=== PATIENT | female | born 1950 | race Caucasian/White ===

== ENCOUNTER → 2017-11-22 | Outpatient (CLI) | payer MEDICARE ==
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
== END ==
LOC: MRI 09:17
PROVIDERS: ATTEND Student in an Organized Health Care Education/Training Program
DX: M54.5 Low back pain (principal); M54.16 Radiculopathy, lumbar region; M54.12 Radiculopathy, cervical region; M47.892 Other spondylosis, cervical region
CPT/HCPCS: 72141; 72148

== ENCOUNTER → 2018-03-31 | Day surgery (SDC) | payer MEDICARE, OTHER ==
[~2018-03-31] MED LIST: ALENDRONATE SOD70 MG; ALEVE220 M1; CEFTRIAXONE SOD 1 GM VIAL ONE; CLARITIN-D 241 EACH PO; FLONASE; IOPAMIDOL 610MG/1ML 300 MG/ML VIAL IV ONE; LIDOCAINE HCL 1% LOCAL INJ 20 ML VIAL ONE; LIDOCAINE JELLY 2% 10ML URO-JET ONE; LISINOPRIL10 MG PO; LYRICA50 MG; NORCO 10-325 T1 EACH; PANTOPRAZOLE SO40 MG PO; PROMETHAZINE HC25 M1 PO; SERTRALINE HCL100 MG PO; VITAMIN D1000 UNI1 PO
--- OUTSIDE RECORDS SUMMARY | 2018-03-31 08:47 | XMS REPORT | Clinical Summary ---
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 Disp. Refills Start End Date Status Date ergocalciferol (VITAMIN TK 1 C PO 1 TIME A WK 1 11/05/19 Active D2) 50,000 unit capsule 17 HYDROcodone-acetaminophen TK 1 T PO QID PRN 0 10/27/19 Active (NORCO) 10-325 mg per 17 tablet sertraline (ZOLOFT) 100 TK 1 T PO QD 5 08/17/19 Active MG tablet 17 pregabalin (LYRICA) 75 MG Take 75 mg by mouth 2 Active capsule (two) times a day. traZODone (DESYREL) 50 MG TK 1 T PO QD HS PRN 5 11/14/19 Active tablet 17 fluticasone (FLONASE) 50 SHAKE LQ AND U 1 SPR IEN 1 12/03/19 Active mcg/actuation nasal spray QD 17 metoprolol succinate XL Take 50 mg by mouth Active (TOPROL-XL) 50 mg 24 hr daily. tablet ascorbic acid, vitamin C, Take 1,000 mg by mouth Active (vitamin C) 1000 MG daily. tablet atenolol (TENORMIN) 50 MG TK 1 T PO QD 2 10/14/19 04/08/20 Discontin tablet 17 17 ued cyanocobalamin 1,000 0 10/18/19 04/08/20 Discontin mcg/mL injection 17 17 ued lidocaine-prilocaine USE UP TO 3 GRAMS (1 99 09/01/19 05/04/20 Discontin (EMLA) 2.5-2.5 % cream PUMP=1.5 GRAMS) TO PAIN 17 17 ued SITE 3-4 TIMES DAILY venlafaxine (EFFEXOR) 3 09/10/19 06/22/19 Discontin 37.5 MG tablet 17 18 ued oxybutynin (DITROPAN) 5 TK 1 T PO BID 5 11/24/19 04/08/20 Discontin MG tablet 17 17 ued pantoprazole (PROTONIX) Take 1 tablet (40 mg 60 tablet 11 12/09/19 09/01/19 Discontin 40 MG EC total) by mouth 2 (two) 17 18 ued tabletIndications: times a day before meals. Gastroesophageal reflux disease with esophagitis methocarbamol (ROBAXIN) Take 750 mg by mouth 2 06/22/19 Discontin 750 MG tablet (two) times a day. 18 ued LYRICA 100 mg capsule TK 1 C PO TID 1 02/19/20 04/08/20 Discontin 17 17 ued sucralfate (CARAFATE) 1 TK 1 T PO BID OES 5 02/12/20 06/29/19 Discontin gram tablet 17 18 ued simethicone (MYLICON) 80 Chew 1 tablet (80 mg 120 tablet 0 07/28/19 07/28/19 Discontin MG chewable tablet total) 4 (four) times a 18 18 ued day for 30 days. simethicone (MYLICON) 80 Chew 1 tablet (80 mg 120 tablet 0 07/28/19 07/28/19 Discontin MG chewable tablet total) 4 (four) times a 18 18 ued day for 30 days. simethicone (MYLICON) 80 Chew 1 tablet (80 mg 120 tablet 0 07/28/19 08/27/19 MG chewable tablet total) 4 (four) times a 18 18 day for 30 days. acetaminophen (TYLENOL Take 2 tablets (1,000 mg 30 tablet 0 07/28/19 08/02/19 EXTRA STRENGTH) 500 MG total) by mouth every 8 18 18 tablet (eight) hours for 5 days. naproxen sodium (ANAPROX) Take 1 tablet (275 mg 6 tablet 0 07/28/19 07/31/19 275 MG tablet total) by mouth 2 (two) 18 18 times a day with meals for 3 days. Active Problems Problem Noted Date Achalasia 07/26/2017 Encounters Date Type Specialty Care Team Description 03/14/2018 [facility] Radiology NyBlake MD Screening breast Encounter examination 03/14/2018 Ancillary Access System, Provider Not In, Screening breast Orders MD examination 03/09/2018 Transcribe Access Blake Alejandra MD Screening breast Orders examination (Primary Dx) 11/09/2017 Office Visit Gastroenterology Mele Siddiqui MD Achalasia (Primary Dx) 09/29/2017 Office Visit Gastroenterology Mele Siddiqui MD Diarrhea, unspecified type (Primary Dx) 08/31/2017 Office Visit Cardiothoracic Surgery Basim Vera MD Surgery follow-up examination (Primary Dx); Achalasia 07/26/2017 [facility] Cardiovascular Basim Vera MD Achalasia - Encounter 07/27/2017 07/26/2017 Anesthesia Cardiothoracic Surgery Jeff Badillo MD Event 07/26/2017 Procedure Pass Cardiothoracic Surgery 07/26/2017 Surgery Cardiothoracic Surgery Basim Vera MD ROBOTIC ASSISTED LAPAROSCOPIC HELLER MYOTOMY W/ LEILANI FUNDOPLICATION 07/09/2017 Office Visit Gastroenterology Mele Siddiqui MD Achjaviersia (Primary Dx) 06/29/2017 Office Visit Cardiothoracic Surgery Basim Vera MD Achjaviersikristyn (Primary Dx); Pre-op testing 06/24/2017 Procedure Pass Cardiothoracic Surgery 06/22/2017 [facility] Cardiothoracic Surgery Basim Vera MD Encounter 06/22/2017 Anesthesia Cardiothoracic Surgery Jabari Clark Event 06/22/2017 Procedure Pass Cardiothoracic Surgery 06/22/2017 Surgery Cardiothoracic Surgery Basim Vera MD EGD WITH ENDOFLIP 06/21/2017 Telephone Cardiothoracic Surgery Fiordaliza Barger, BODY SHOP MECHANIC 06/21/2017 Orders Only Cardiothoracic Surgery Fiordaliza Barger, BODY SHOP MECHANIC 06/02/2017 Telephone Cardiothoracic Surgery Fiordaliza Barger, BODY SHOP MECHANIC 05/04/2017 Lab Lab Basim Vera MD Pre-operative laboratory examination (Primary Dx); Dyskinesia of esophagus 05/04/2017 Office Visit Cardiothoracic Surgery Basim Vera MD Pre-operative laboratory examination (Primary Dx); Esophageal dysmotility 05/04/2017 Orders Only Procedural Cardiology Alex Melara 05/03/2017 [facility] Radiology Basim Vera MD Achalasia Encounter 04/21/2017 Transcribe Cardiothoracic Surgery Basim Vera MD Achalasia (Primary Dx) Orders 04/08/2017 Office Visit Gastroenterology Mele Siddiqui MD Achalasia (Primary Dx) after 03/30/2017 Family History Relation Name Status Comments Father Mother Social History Tobacco Use Types Packs/Day Years Used Date Never Smoker Smokeless Tobacco: Never Used Alcohol Use Drinks/Week oz/Week Comments Yes socially Sex Assigned at Date Recorded Not on file Last Filed Vital Signs Vital Sign Reading Time Taken Blood Pressure 123/80 11/09/2017 10:33 AM CDT Pulse 74 11/09/2017 10:33 AM CDT Temperature 36.5 C (97.7 F) 11/09/2017 10:33 AM CDT Respiratory Rate 18 08/31/2017 1:44 PM CDT Oxygen Saturation 95% 08/31/2017 1:44 PM CDT Inhaled Oxygen - - Concentration Weight 87.5 kg (193 lb) 11/09/2017 10:33 AM CDT Height 162.6 cm (5' 4") 11/09/2017 10:33 AM CDT Body Mass Index 33.13 11/09/2017 10:33 AM CDT Plan of Treatment Health Maintenance Due Date Last Done Comments CERVICAL CANCER SCREENING 1973 COLON CANCER SCREENING 2002 SHINGRIX VACCINE (#1) 2002 ZOSTER VACCINE 2012 PNEUMOCOCCAL 2017 POLYSACCHARIDE VACCINE AGE 65 AND OVER PNEUMOCOCCAL-13 2017 INFLUENZA VACCINE 12/22/2017 BREAST CANCER SCREENING 03/14/2020 03/14/2018 Implants Implanted Type Area Mumps Developer Device Expiration Model / Identifier Date Serial / Lot Catheter Endoflip 8cm Measurement - Surgical N/A: N/A CROSPON EF 325N / [id number] Implants; / Implanted: 06/22/2017 (Quantity not Expanders; on file) Extenders; Surgical Wires Catheter Endoflip 8cm Measurement - Surgical N/A: N/A CROSPON EF 325N / [id number] Implants; / Implanted: 07/26/2017 (Quantity not Expanders; on file) Extenders; Surgical Wires Glynn Perph Vasclr Ptfe 1.2x10cm Vascular N/A: N/A BARD PERIPHERAL 04/20/2022 [id number] / 1.65mm - [id number] Graft VASCULAR / Implanted: 07/26/2017 (Quantity not [id number] on file) Procedures Procedure Name Priority Date/Time Associated Diagnosis Comments MAMMO BREAST SCREEN Routine 03/14/2018 Screening breast Results for this TOMOSYNTHESIS BILATERAL 10:55 AM CDT examination procedure are in the results section. GASTROINTESTINAL PANEL Routine 10/04/2017 12:00 AM CDT ZZESTIMATED GFR Routine 07/27/2017 Results for this 6:53 AM INFECTIOUS DISEASE PHYSICIAN procedure are in the results section. BASIC METABOLIC PANEL Routine 07/27/2017 Results for this 6:53 AM INFECTIOUS DISEASE PHYSICIAN procedure are in the results section. CBC HEMOGRAM Routine 07/27/2017 Results for this 6:12 AM INFECTIOUS DISEASE PHYSICIAN procedure are in the results section. POC GLUCOSE Routine 07/26/2017 Results for this 8:54 PM INFECTIOUS DISEASE PHYSICIAN procedure are in the results section. IONIZED CALCIUM, ARTERIAL STAT 07/26/2017 Results for this 4:30 PM INFECTIOUS DISEASE PHYSICIAN procedure are in the results section. GLUCOSE LEVEL, SYRINGE STAT 07/26/2017 Results for this 4:30 PM INFECTIOUS DISEASE PHYSICIAN procedure are in the results section. POTASSIUM, SYRINGE STAT 07/26/2017 Results for this 4:30 PM INFECTIOUS DISEASE PHYSICIAN procedure are in the results section. SODIUM LEVEL, SYRINGE STAT 07/26/2017 Results for this 4:30 PM INFECTIOUS DISEASE PHYSICIAN procedure are in the results section. HEMOGLOBIN, SYRINGE STAT 07/26/2017 Results for this 4:30 PM INFECTIOUS DISEASE PHYSICIAN procedure are in the results section. ARTERIAL BLOOD GAS, STAT 07/26/2017 Results for this CORRECTED 4:30 PM INFECTIOUS DISEASE PHYSICIAN procedure are in the results section. GLUCOSE LEVEL, SYRINGE STAT 07/26/2017 Results for this 2:51 PM INFECTIOUS DISEASE PHYSICIAN procedure are in the results section. HEMOGLOBIN, SYRINGE STAT 07/26/2017 Results for this 2:51 PM INFECTIOUS DISEASE PHYSICIAN procedure are in the results section. IONIZED CALCIUM, ARTERIAL STAT 07/26/2017 Results for this 2:51 PM INFECTIOUS DISEASE PHYSICIAN procedure are in the results section. POTASSIUM, SYRINGE STAT 07/26/2017 Results for this 2:51 PM INFECTIOUS DISEASE PHYSICIAN procedure are in the results section. SODIUM LEVEL, SYRINGE STAT 07/26/2017 Results for this 2:51 PM INFECTIOUS DISEASE PHYSICIAN procedure are in the results section. ARTERIAL BLOOD GAS, STAT 07/26/2017 Results for this CORRECTED 2:51 PM INFECTIOUS DISEASE PHYSICIAN procedure are in the results section. ARTERIAL LINE Routine 07/26/2017 2:23 PM INFECTIOUS DISEASE PHYSICIAN Procedure Note - Raiza Maldonado MD - 07/26/2017 2:23 PM INFECTIOUS DISEASE PHYSICIAN Arterial line Performed by: RAIZA MALDONADO Authorized by: ARIZA MALDONADO SD AN ELECTIVE Routine 07/26/2017 ENDOTRACHEAL AIRWAY 2:20 PM INFECTIOUS DISEASE PHYSICIAN Procedure Note - Raiza Maldonado MD - 07/26/2017 2:20 PM INFECTIOUS DISEASE PHYSICIAN Airway Date/Time: 07/26/2017 2:17 AM Performed by: RAIZA MALDONADO Authorized by: RAIZA MALDONADO Location: OR Urgency: Elective Difficult Airway: No Anesthesio logist: RAIZA MALDONADO Resident/C RNA/AA: SUSSY GARCIA Performed by: resident/C RNA/AA Preoxygena lydia with 100% O2: Yes C-spine Precaution s Maintained Throughout : Yes Mask Ventilatio n: Easy mask Final Airway Type: Endotrache al airway Final Endotrache al Airway: ETT Technique Used: Direct laryngosco py Devices/Me thods Used in Placement: Intubatin g stylet Insertion Site: Oral Blade Type: Julian Laryngosco pe Blade/Vide olaryngosc ope Blade Size: 3 ETT Size (mm): 7.0 Measured from: Lips ETT to Lips (cm): 20 Placement Verified by: CO2 detection, direct visualizat ion and equal breath sounds Laryngosco pic view: Grade I - full view of glottis Rapid Sequence Induction (RSI): Yes Modified RSI: No Number of Attempts at Approach: 1 ECG 12-LEAD STAT 07/26/2017 Results for this 1:40 PM INFECTIOUS DISEASE PHYSICIAN procedure are in the results section. SODIUM LEVEL, SYRINGE STAT 07/26/2017 Results for this 11:55 AM INFECTIOUS DISEASE PHYSICIAN procedure are in the results section. POTASSIUM, SYRINGE STAT 07/26/2017 Results for this 11:55 AM INFECTIOUS DISEASE PHYSICIAN procedure are in the results section. HEMOGLOBIN, SYRINGE STAT 07/26/2017 Results for this 11:55 AM INFECTIOUS DISEASE PHYSICIAN procedure are in the results section. GLUCOSE LEVEL, SYRINGE STAT 07/26/2017 Results for this 11:55 AM INFECTIOUS DISEASE PHYSICIAN procedure are in the results section. PREPARE RBC STAT 07/26/2017 Results for this 11:20 AM INFECTIOUS DISEASE PHYSICIAN procedure are in the results section. TYPE AND SCREEN STAT 07/26/2017 Results for this 11:20 AM INFECTIOUS DISEASE PHYSICIAN procedure are in the results section. SURGICAL PATHOLOGY Routine 07/26/2017 Results for this REQUEST 8:56 AM INFECTIOUS DISEASE PHYSICIAN procedure are in the results section. SD AN ELECTIVE Routine 06/22/2017 ENDOTRACHEAL AIRWAY 8:16 AM INFECTIOUS DISEASE PHYSICIAN Procedure Note - Alfred Perry MD - 06/22/2017 7:41 AM INFECTIOUS DISEASE PHYSICIAN Airway Date/Time: 06/22/2017 7:38 AM Performed by: SANTO JIMENEZ Authorized by: ALFRED PERRY Location: OR Urgency: Elective Difficult Airway: No Anesthesio logist: ALFRED PERRY Resident/C RNA/AA: SANTO JIMENEZ Performed by: resident/C RNA/AA Preoxygena lydia with 100% O2: Yes C-spine Precaution s Maintained Throughout : Yes Mask Ventilatio n: Easy mask Final Airway Type: Endotrache al airway Final Endotrache al Airway: ETT Technique Used: Direct laryngosco py Devices/Me thods Used in Placement: Intubatin g stylet Insertion Site: Oral Blade Type: Julian Laryngosco pe Blade/Vide olaryngosc ope Blade Size: 2 ETT Size (mm): 7.0 Measured from: Lips ETT to Lips (cm): 22 Placement Verified by: CO2 detection, direct visualizat ion and equal breath sounds Laryngosco pic view: Grade IIa - partial view of glottis Rapid Sequence Induction (RSI): Yes Modified RSI: No Number of Attempts at Approach: 1 Atraumati c Lips teeth tongue eyes remain in preoperati ve status OR FL < 1 HOUR Routine 06/22/2017 Results for this 8:00 AM INFECTIOUS DISEASE PHYSICIAN procedure are in the results section. PARTIAL THROMBOPLASTIN STAT 06/22/2017 Results for this TIME (PTT) 6:43 AM INFECTIOUS DISEASE PHYSICIAN procedure are in the results section. PROTHROMBIN TIME WITH INR STAT 06/22/2017 Results for this 6:43 AM INFECTIOUS DISEASE PHYSICIAN procedure are in the results section. HC COMPLETE BLD COUNT STAT 06/22/2017 Results for this W/AUTO DIFF 6:43 AM INFECTIOUS DISEASE PHYSICIAN procedure are in the results section. TYPE AND SCREEN STAT 06/22/2017 Results for this 5:55 AM INFECTIOUS DISEASE PHYSICIAN procedure are in the results section. ZZESTIMATED GFR STAT 06/22/2017 Results for this 5:46 AM INFECTIOUS DISEASE PHYSICIAN procedure are in the results section. BASIC METABOLIC PANEL STAT 06/22/2017 Results for this 5:46 AM INFECTIOUS DISEASE PHYSICIAN procedure are in the results section. ECG 12-LEAD Routine 05/04/2017 Results for this 12:35 PM INFECTIOUS DISEASE PHYSICIAN procedure are in the results section. ZZESTIMATED GFR Routine 05/04/2017 Results for this 12:20 PM INFECTIOUS DISEASE PHYSICIAN procedure are in the results section. PROTHROMBIN TIME WITH INR Routine 05/04/2017 Pre-operative laboratory Results for this 12:20 PM INFECTIOUS DISEASE PHYSICIAN examination procedure are in the Dyskinesia of esophagus results section. PARTIAL THROMBOPLASTIN Routine 05/04/2017 Pre-operative laboratory Results for this TIME (PTT) 12:20 PM INFECTIOUS DISEASE PHYSICIAN examination procedure are in the Dyskinesia of esophagus results section. HC COMPLETE BLD COUNT Routine 05/04/2017 Pre-operative laboratory Results for this W/AUTO DIFF 12:20 PM INFECTIOUS DISEASE PHYSICIAN examination procedure are in the Dyskinesia of esophagus results section. COMPREHENSIVE METABOLIC Routine 05/04/2017 Pre-operative laboratory Results for this PANEL 12:20 PM INFECTIOUS DISEASE PHYSICIAN examination procedure are in the Dyskinesia of esophagus results section. FL ESOPHAGRAM COMPLETE Routine 05/03/2017 Achalasia Results for this 10:56 AM INFECTIOUS DISEASE PHYSICIAN procedure are in the results section. after 03/30/2017 Results * Mammo Breast Screen Tomosynthesis Bilateral (03/14/2018 10:55 AM) Narrative Performed At PROCEDURE: MAMMO BREAST SCREEN TOMOSYNTHESIS BILATERAL [facility] Computer aided detection was utilized for the interpretation of the digital mammography with tomosynthesis. INDICATION:Routine screening. COMPARISON: This exam is interpreted without the benefit of prior mammograms for comparison. DENSITY: There are scattered areas of fibroglandular density. FINDINGS: Faint vascular arterial wall calcifications are noted. There is no suspicious mass, microcalcification, or architectural distortion identified. IMPRESSION:No mammographic evidence of malignancy. RECOMMENDATION: Comparison with physical exam and annual screening mammography. BI-RADS 2:BENIGN This facility is accredited by the [employer] for Mammography. A negative x-ray report should not delay biopsy if a dominant or clinically suspicious mass is present.Not all cancers are identified by x-ray. [id number] Performing Organization Address City/State/Zipcode Phone Number [facility] [address] [place] [address] * Gastrointestinal panel (10/04/2017) Specimen Stool Narrative Performed At * Estimated GFR (07/27/2017 6:53 AM) Only the most recent of 3 results within the time period is included. GFR Non Af Amer >90 mL/min/1.[address] [facility] DEPARTMENT OF PATHOLOGY AND GENOMIC MEDICINE GFR Af Amer >90 mL/min/1.[address] [facility] DEPARTMENT OF Comment: PATHOLOGY AND Chronic kidney disease: <60 [facility] MEDICINE mL/min/1.73m2 Kidney failure: <15 mL/min/1.73m2 The estimated GFR is calculated from the IDMS-traceable Modification of Diet in Renal Disease Equation. The accuracy of the calculation is poor when the creatinine is normal. Calculated values >90 mL/min/1.73m2 are not reported. This equation has not been validated in children (<18 years), women, the elderly (>70 years), or ethnic groups other than Caucasians and Americans. Specimen Plasma specimen Performing Organization Address City/[facility] [place] [address] PATHOLOGY [facility] * Basic metabolic panel (07/27/2017 6:53 AM) Only the most recent of 2 results within the time period is included. Sodium 145 135 - 148 mEq/L [facility] DEPARTMENT OF PATHOLOGY AND GENOMIC MEDICINE Potassium 3.7 3.5 - 5.0 mEq/L [facility] DEPARTMENT OF PATHOLOGY AND GENOMIC MEDICINE Chloride 107 98 - 112 mEq/L [facility] DEPARTMENT OF PATHOLOGY AND GENOMIC MEDICINE CO2 27 24 - 31 mEq/L [facility] DEPARTMENT OF PATHOLOGY AND GENOMIC MEDICINE Anion gap 11 7 - 15 mEq/L [facility] DEPARTMENT OF Comment: PATHOLOGY AND Starting from August [facility] , anion gap calculation no longer incorporates potassium. Please note the change. BUN 13 8 - 23 mg/dL [facility] DEPARTMENT OF PATHOLOGY AND GENOMIC MEDICINE Creatinine 0.5 0.5 - 0.9 mg/dL [facility] DEPARTMENT OF PATHOLOGY AND GENOMIC MEDICINE Glucose 99 65 - 99 mg/dL [facility] DEPARTMENT OF PATHOLOGY AND GENOMIC MEDICINE Calcium 9.6 8.8 - 10.2 mg/dL [facility] DEPARTMENT OF PATHOLOGY AND GENOMIC MEDICINE Specimen Plasma specimen Performing Organization Address City/[facility] Phone Number [address] [address] PATHOLOGY [facility] [employer] [facility] * CBC hemogram (07/27/2017 6:12 AM) WBC 4.18 (L) 4.50 - 11.00 k/uL [facility] DEPARTMENT OF PATHOLOGY AND GENOMIC MEDICINE RBC 4.32 4.20 - 5.50 m/uL [facility] DEPARTMENT OF PATHOLOGY AND GENOMIC MEDICINE HGB 12.1 12.0 - 16.0 g/dL [facility] DEPARTMENT OF PATHOLOGY AND GENOMIC MEDICINE HCT 36.7 (L) 37.0 - 47.0 % [facility] DEPARTMENT OF PATHOLOGY AND GENOMIC MEDICINE MCV 85.0 82.0 - 100.[address] [facility] DEPARTMENT OF PATHOLOGY AND GENOMIC MEDICINE MCH 28.0 27.0 - 34.[address] [facility] DEPARTMENT OF PATHOLOGY AND GENOMIC MEDICINE MCHC 33.0 31.0 - 37.0 g/dL [facility] DEPARTMENT OF PATHOLOGY AND GENOMIC MEDICINE RDW - SD 46.2 37.0 - 55.[address] [facility] DEPARTMENT OF PATHOLOGY AND GENOMIC MEDICINE MPV 9.7 8.8 - 13.[address] [facility] DEPARTMENT OF PATHOLOGY AND GENOMIC MEDICINE Platelet count 142 (L) 150 - 400 k/uL [facility] DEPARTMENT OF PATHOLOGY AND GENOMIC MEDICINE Nucleated RBC 0.00 /[address] [facility] DEPARTMENT OF PATHOLOGY AND GENOMIC MEDICINE Performing Organization Address City/[facility]ode Phone Number [facility] [place] [address] PATHOLOGY AND GENOMIC MEDICINE * POC glucose (07/26/2017 8:54 PM) POC glucose 112 (H) 65 - 99 mg/dL [facility] DEPARTMENT OF Comment: PATHOLOGY AND REPLACED BY [facility] Notified RN GENOMIC MEDICINE Meter ID: [id number] Mental Health Counselor: Daniel Sellers Performing Organization Address City/[facility] [place] [address] PATHOLOGY AND GENOMIC MEDICINE * Sodium level, syringe (07/26/2017 4:30 PM) Only the most recent of 3 results within the time period is included. Sodium, syringe 139 135 - 148 mEq/L [facility] DEPARTMENT OF PATHOLOGY AND GENOMIC MEDICINE Specimen Blood Performing Organization Address City/[facility] [place] [address] PATHOLOGY AND GENOMIC MEDICINE * Potassium, syringe (07/26/2017 4:30 PM) Only the most recent of 3 results within the time period is included. Potassium, syringe 3.5 3.5 - 5.0 mEq/L [facility] DEPARTMENT OF PATHOLOGY AND GENOMIC MEDICINE Specimen Blood Performing Organization Address City/State/[place] [address] PATHOLOGY AND GENOMIC MEDICINE * Ionized calcium, arterial (07/26/2017 4:30 PM) Only the most recent of 2 results within the time period is included. Ionized calcium, arterial 1.04 (L) 1.11 - 1.32 mmol/L [facility] DEPARTMENT OF PATHOLOGY AND GENOMIC MEDICINE Specimen Blood Performing Organization Address City/[facility] [place] [address] PATHOLOGY AND GENOMIC MEDICINE * Hemoglobin, syringe (07/26/2017 4:30 PM) Only the most recent of 3 results within the time period is included. Hemoglobin, syringe 11.5 (L) 12.0 - 16.0 g/dL [facility] DEPARTMENT OF PATHOLOGY AND GENOMIC MEDICINE Specimen Blood Performing Organization Address City/[facility] [place] [address] PATHOLOGY AND GENOMIC MEDICINE * Glucose level, syringe (07/26/2017 4:30 PM) Only the most recent of 3 results within the time period is included. Glucose, syringe 118 (H) 65 - 99 mg/dL [facility] DEPARTMENT OF PATHOLOGY AND GENOMIC MEDICINE Specimen Blood Performing Organization Address [facility] [place] [address] PATHOLOGY AND GENOMIC MEDICINE * Arterial blood gas, corrected (07/26/2017 4:30 PM) Only the most recent of 2 results within the time period is included. pH, arterial 7.41 7.35 - 7.[address] [facility] DEPARTMENT OF PATHOLOGY AND GENOMIC MEDICINE pCO2, arterial 36 35 - [address] [facility] DEPARTMENT OF PATHOLOGY AND GENOMIC MEDICINE pO2, arterial 229 (H) 80 - [address] [facility] DEPARTMENT OF PATHOLOGY AND GENOMIC MEDICINE Temperature, Celsius 37.[address] [facility] DEPARTMENT OF PATHOLOGY AND GENOMIC MEDICINE O2 saturation, arterial 99 95 - 100 % [facility] DEPARTMENT OF PATHOLOGY AND GENOMIC MEDICINE pH, arterial corrected 7.[address] [facility] DEPARTMENT OF PATHOLOGY AND GENOMIC MEDICINE pCO2, arterial corrected [address] [facility] DEPARTMENT OF PATHOLOGY AND GENOMIC MEDICINE pO2, arterial corrected [address] [facility] DEPARTMENT OF PATHOLOGY AND GENOMIC MEDICINE Base excess, arterial -1 -2 - 2 mEq/L [facility] DEPARTMENT OF PATHOLOGY AND GENOMIC MEDICINE Specimen Blood Performing Organization Address [facility]/Zipcode Phone Number [address] [address] PATHOLOGY AND GENOMIC MEDICINE * ECG 12 lead (07/26/2017 1:40 PM) Only the most recent of 2 results within the time period is included. Ventricular rate 77 [facility] Atrial rate 77 [facility] SD interval 184 [facility] QRSD interval 100 [facility] QT interval 388 [facility] QTC interval [address] [facility] MUSE P axis 1 24 HM MUSE QRS axis 1 -[address] [facility] MUSE T wave axis -[address] [facility] MUSE EKG impression Normal sinus rhythm-Left axis 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 DEPARTMENT OF PATHOLOGY AND GENOMIC MEDICINE Unit number [id number] [facility] DEPARTMENT OF PATHOLOGY AND GENOMIC MEDICINE Product code [id number] [facility] DEPARTMENT OF PATHOLOGY AND GENOMIC MEDICINE Dispense status Returned to BB not transfused [facility] DEPARTMENT OF PATHOLOGY AND GENOMIC MEDICINE Blood expiration date [id number] [facility] DEPARTMENT OF PATHOLOGY AND GENOMIC MEDICINE Blood type code [address] [facility] DEPARTMENT OF PATHOLOGY AND GENOMIC MEDICINE Blood type A NEGATIVE [facility] DEPARTMENT OF PATHOLOGY AND GENOMIC MEDICINE Performing Organization Address City/[facility] Cent[facility]ode Phone Number [facility] DEPARTMENT [address] [address] PATHOLOGY AND GENOMIC MEDICINE * Type and screen (07/26/2017 11:20 AM) Only the most recent of 2 results within the time period is included. ABO grouping A [facility] DEPARTMENT OF PATHOLOGY AND GENOMIC MEDICINE Rh type NEG [facility] DEPARTMENT OF PATHOLOGY AND GENOMIC MEDICINE Antibody screen (gel) NEG [facility] DEPARTMENT OF PATHOLOGY AND GENOMIC MEDICINE Specimen Blood Performing Organization Address City/State/Zipcode Phone Number [facility] [place] [address] PATHOLOGY AND GENOMIC MEDICINE * Surgical pathology request (07/26/2017 8:56 AM) [facility] DEPARTMENT OF PATHOLOGY AND GENOMIC MEDICINE Surgical pathology report See link below for PDF Lab [facility] DEPARTMENT OF Report PATHOLOGY AND GENOMIC MEDICINE Result status This is Final Report to [facility] DEPARTMENT OF [id number] PATHOLOGY AND GENOMIC MEDICINE Performing Organization Address City/[facility] [place] [address] PATHOLOGY AND GENOMIC MEDICINE * OR [place] < 1 Hour (06/22/2017 8:00 AM) Narrative Performed At IMPRESSION: C-arm fluoroscopy under one hour was provided in the OR for the [facility] referring physician. A radiologist was not present during the procedure. Refer to the Operative report issued by the performing provider for procedure details. LOCATION: [place] [facility]7 PROCEDURE: EGD START TIME: 744 FINISH TIME: 0800 FLUORO TIME: :05 DOSE (mGy): 1.7 TECH(S): AB Procedure Note Hm Interface, Radiology Results Incoming - 06/22/2017 10:33 AM INFECTIOUS DISEASE PHYSICIAN IMPRESSION: C-arm fluoroscopy under one hour was provided in the OR for the referring physician. A radiologist was not present during the procedure. Refer to the Operative report issued by the performing provider for procedure details. LOCATION: [facility] PROCEDURE: EGD START TIME: 744 FINISH TIME: 0800 FLUORO TIME: :05 DOSE (mGy): 1.7 TECH(S): AB Performing Organization Address [facility] [place] [address] * Partial thromboplastin time, activated (06/22/2017 6:43 AM) Only the most recent of 2 results within the time period is included. PTT 27.5 23.0 - 36.[address] [facility] DEPARTMENT OF Comment: PATHOLOGY AND PTT therapeutic range for GENOMIC MEDICINE unfractionated heparin is 61.0-112.0 seconds which corresponds to Anti-Xa 0.3-0.7 U/ml. Specimen Blood Performing Organization Address City/[facility]/[place] [address] PATHOLOGY AND GENOMIC MEDICINE * Prothrombin time with INR (06/22/2017 6:43 AM) Only the most recent of 2 results within the time period is included. Prothrombin time 13.0 12.0 - 15.[address] [facility] DEPARTMENT OF PATHOLOGY AND GENOMIC MEDICINE INR 1.[address] [facility] DEPARTMENT OF Comment: PATHOLOGY AND The International Normalized GENOMIC MEDICINE Ratio (INR) is a therapeutic monitoring tool for patients who are stable on oral anticoagulant therapy. An INR of 2.0-3.0 is suggested for deep vein thrombosis/pulmonary embolism. Specimen Blood Performing Organization Address City/State/Zipcode Phone Number [facility] DEPARTMENT OF [address] [place] [address] PATHOLOGY AND GENOMIC MEDICINE * CBC with platelet and differential (06/22/2017 6:43 AM) Only the most recent of 2 results within the time period is included. WBC 5.18 4.50 - 11.00 k/uL [facility] DEPARTMENT OF PATHOLOGY AND GENOMIC MEDICINE RBC 4.41 4.20 - 5.50 m/uL [facility] DEPARTMENT OF PATHOLOGY AND GENOMIC MEDICINE HGB 12.2 12.0 - 16.0 g/dL [facility] DEPARTMENT OF PATHOLOGY AND GENOMIC MEDICINE HCT 36.8 (L) 37.0 - 47.0 % [facility] DEPARTMENT OF PATHOLOGY AND GENOMIC MEDICINE MCV 83.4 82.0 - 100.[address] [facility] DEPARTMENT OF PATHOLOGY AND GENOMIC MEDICINE MCH 27.7 27.0 - 34.[address] [facility] DEPARTMENT OF PATHOLOGY AND GENOMIC MEDICINE MCHC 33.2 31.0 - 37.0 g/dL [facility] DEPARTMENT OF PATHOLOGY AND GENOMIC MEDICINE RDW - SD 45.0 37.0 - 55.[address] [facility] DEPARTMENT OF PATHOLOGY AND GENOMIC MEDICINE MPV 9.8 8.8 - 13.[address] [facility] DEPARTMENT OF PATHOLOGY AND GENOMIC MEDICINE Platelet count 144 (L) 150 - 400 k/uL [facility] DEPARTMENT OF PATHOLOGY AND GENOMIC MEDICINE Nucleated RBC 0.00 /[address] [facility] DEPARTMENT OF PATHOLOGY AND GENOMIC MEDICINE Neutrophils 39.9 39.0 - 69.0 % [facility] DEPARTMENT OF PATHOLOGY AND GENOMIC MEDICINE Lymphocytes 48.3 (H) 25.0 - 45.0 % [facility] DEPARTMENT OF PATHOLOGY AND GENOMIC MEDICINE Monocytes 7.7 0.0 - 10.0 % [facility] DEPARTMENT OF PATHOLOGY AND GENOMIC MEDICINE Eosinophils 3.3 0.0 - 5.0 % [facility] DEPARTMENT OF PATHOLOGY AND GENOMIC MEDICINE Basophils 0.6 0.0 - 1.0 % [facility] DEPARTMENT OF PATHOLOGY AND GENOMIC MEDICINE Immature granulocytes 0.2Comment: "Immature 0.0 - 1.0 % [facility] DEPARTMENT OF granulocytes" (promyelocytes, PATHOLOGY AND myelocytes, metamyelocytes) [facility] Specimen Blood Performing Organization Address City/State/Zipcode Phone Number [facility] DEPARTMENT OF [address] [place] [address] PATHOLOGY AND GENOMIC MEDICINE * Comprehensive metabolic panel (05/04/2017 12:20 PM) Sodium 142 135 - 148 mEq/L [facility] DEPARTMENT OF PATHOLOGY AND GENOMIC MEDICINE Potassium 4.0 3.5 - 5.0 mEq/L [facility] DEPARTMENT OF PATHOLOGY AND GENOMIC MEDICINE Chloride 102 98 - 112 mEq/L [facility] DEPARTMENT OF PATHOLOGY AND GENOMIC MEDICINE CO2 27 24 - 31 mEq/L [facility] DEPARTMENT OF PATHOLOGY AND GENOMIC MEDICINE Anion gap 13 7 - 15 mEq/L [facility] DEPARTMENT OF Comment: PATHOLOGY AND Starting from August GENOMIC MEDICINE , anion gap calculation no longer incorporates potassium. Please note the change. BUN 14 8 - 23 mg/dL [facility] DEPARTMENT OF PATHOLOGY AND GENOMIC MEDICINE Creatinine 0.5 0.5 - 0.9 mg/dL [facility] DEPARTMENT OF PATHOLOGY AND GENOMIC MEDICINE Glucose 91 65 - 99 mg/dL [facility] DEPARTMENT OF PATHOLOGY AND GENOMIC MEDICINE Calcium 9.7 8.8 - 10.2 mg/dL [facility] DEPARTMENT OF PATHOLOGY AND GENOMIC MEDICINE Protein 7.2 6.3 - 8.3 g/dL [facility] DEPARTMENT OF Comment: PATHOLOGY AND [place] GENOMIC MEDICINE 4.6-7.0 g/dL 1 week 4.4-7.6 g/dL 7 months-1year 5.1-7.3 g/dL 1-2 years5.6-7 .5 g/dL >3 years6.0-8 .0 g/dL 18-150 6.3-8.3 g/dL Albumin 3.9 3.5 - 5.0 g/dL [facility] DEPARTMENT OF PATHOLOGY AND GENOMIC MEDICINE A/G ratio 1.2 0.7 - 3.[address] [facility] DEPARTMENT OF PATHOLOGY AND GENOMIC MEDICINE Alkaline phosphatase 88 35 - 104 U/L [facility] DEPARTMENT OF PATHOLOGY AND GENOMIC MEDICINE AST 23 10 - 35 U/L [facility] DEPARTMENT OF PATHOLOGY AND GENOMIC MEDICINE ALT 17 5 - 50 U/L [facility] DEPARTMENT OF PATHOLOGY AND GENOMIC MEDICINE Total bilirubin 0.5 0.0 - 1.2 mg/dL [facility] DEPARTMENT OF PATHOLOGY AND GENOMIC MEDICINE Specimen Plasma specimen Performing Organization Address [facility] Phone Number [facility] DEPARTMENT OF [address] [place] [address] PATHOLOGY AND GENOMIC MEDICINE * [place] Esophagram Complete (05/03/2017 10:56 AM) Narrative Performed At EXAMINATION[facility] [facility]:K22.0 Achalasia of cardia, achalasia COMPARISON:None. Fluoroscopy time: 0.6 minutes FINDINGS: The patient swallowed air producing granules and barium without difficulty. The esophagus demonstrates normal motility. No focal mucosal abnormality is identified. There is no evidence of stricture. The esophagogastric junction is unremarkable. There is minimum intermittent gastroesophageal reflux. IMPRESSION: No ductal contrast esophagram evidence of achalasia or stenosis. Minimum intermittent gastroesophageal reflux.. [id number] Procedure Note Interface, Radiology Results Incoming - 05/03/2017 11:15 AM INFECTIOUS DISEASE PHYSICIAN EXAMINATION: [place] ESOPHAGRAM COMPLETE CLINICAL HISTORY: K22.0 Achalasia of cardia, achalasia COMPARISON: None. Fluoroscopy time: 0.6 minutes FINDINGS: The patient swallowed air producing granules and barium without difficulty. The esophagus demonstrates normal motility. No focal mucosal abnormality is identified. There is no evidence of stricture. The esophagogastric junction is unremarkable. There is minimum intermittent gastroesophageal reflux. IMPRESSION: No ductal contrast esophagram evidence of achalasia or stenosis. Minimum intermittent gastroesophageal reflux.. [id number] Performing Organization Address [facility] Centercode Phone Number [facility] [address] [place] [address] after 03/30/2017 Insurance Payer Benefit Subscriber ID Type Phone Address Plan / Group [employer] MEDICARE [employer] DUAL xxxxxxxxx HMO COMPLETE [facility]
--- OUTSIDE RECORDS SUMMARY | 2018-03-31 08:48 | XMS REPORT | Summary of Care ---
Author Author [facility] [place] Organization [facility] [place] Address Unknown Phone Unavailable Encounter HQ Renard_laila(FIN) [id number] Date(s): 10/08/16 - 10/08/16 [facility] [place] [address] [place] [address] 7 [phone] Discharge Disposition: Home or Self Care Attending Physician: Thu Grier MD Vital Signs No data available for this section Problem List Condition Effective Dates Status Health Status Informant Anemia(Confirmed) Resolved Arthritis(Confirmed) Active Bronchiolitis, Resolved acute(Confirmed) Cardiomegaly(Confirm Resolved ed) Colon Resolved polyp(Confirmed) Diaphragmatic Active hernia(Confirmed) Gastric Resolved ulcer(Confirmed) GERD Active (gastroesophageal reflux disease)(Confirmed) HTN - Resolved Hypertension(Confirm ed) Neuropathy(Confirmed Active ) Allergies, Adverse Reactions, Alerts Substance Reaction Severity Status Demerol HCl Active Medications No data available for this section Results No data available for this section Immunizations No data available for this section Procedures Procedure Date Related Diagnosis Body Site Appendectomy Bilateral replacement of knee joints Bilateral tubal ligation Carpal tunnel release Cholecystectomy Colonoscopy Esophagogastroduodenoscopy Hysterectomy Social History Social History Type Response Alcohol Current, Type Wine. Previous treatment: None. Smoking Status Never smoker; Exposure to Tobacco Smoke None; Cigarette Smoking Last 365 Days No; Reg Smoking Cessation Counseling No Assessment and Plan No data available for this section
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
--- OUTSIDE RECORDS SUMMARY | 2018-03-31 08:48 | XMS REPORT | Continuity of Care Document ---
Author Author [facility] Interface Address Unknown Phone Unavailable Problems Problem Status Onset Date Classification Date Reported Comments Source M54.12 - "RADICULOPATHY, CERVICAL REGION Active 10/05/2016 [facility] [place] [facility] 789.04; ABDOMINAL CRAMPING IN LEFT LOWER Active 04/02/2014 [facility] Anemia Resolved Problem 10/11/2016 [facility] [place] Arthritis Active Problem 10/11/2016 [facility] [place] Bronchiolitis, acute Resolved Problem 10/11/2016 [facility] [place] Cardiomegaly Resolved Problem 10/11/2016 [facility] [place] Colon polyp Resolved Problem 10/11/2016 [facility] [place] Diaphragmatic hernia Active Problem 10/11/2016 [facility] [place] Gastric ulcer Resolved Problem 10/11/2016 [facility] [place] GERD (<span ID="[id number]">Confirmed</span>) Active Problem 10/11/2016 [facility] [place] HTN - Hypertension Resolved Problem 10/11/2016 [facility] [place] Neuropathy Active Problem 10/11/2016 [facility] [place] ABDMNAL PAIN LT LWR QUAD Active [facility] Medications Medication Details Route Status Patient Instructions Ordering Provider Order Date Source Allergies, Adverse Reactions, Alerts Substance Category Reaction Severity Reaction type Status Date Reported Comments Source Demerol HCl Assertion Drug allergy Active [facility] [place] [facility] Immunizations Immunization Date Given Site Status Last Updated Comments Source Results Order Name Results Value Reference Range Date Interpretation Comments Source Spine cervical wo contrast MRI Spine cervical wo contrast MRI EXAM: MRI CERVICAL SPINE WITHOUT CONTRAST DATE: 10/08/2016 12:37 PM CDT CLINICAL HISTORY: 66 year old female with c/o cervical pain and headaches. Post fall x 3 months ago. Patient stated she was bending forward and fell hit first. TECHNIQUE: Multiplanar, multisequence MRI cervical spine without IV contrast COMPARISON: Unavailable FINDINGS: VISUALIZED INTRACRANIAL CONTENTS: Unremarkable. CRANIOCERVICAL JUNCTION: Cerebellar tonsils are low-lying protruding 3 mm through foramen magnum. CORD: No definite cord signal abnormality. No definite dural based lesion. VERTEBRAE: The vertebrae are normal in height and alignment. The curvature is hyperlordotic. No focal suspicious bone marrow signal abnormality. PARASPINAL SOFT TISSUES: No edema or masses. There is a 7 mm right thyroid nodule requiring no imaging follow-up unless indicated clinically. DISC LEVELS, SPINAL CANAL, NEURAL FORAMINA: Craniocervical junction: No stenosis C1-C2: No subluxation, ligamentous pannus formation, or stenosis C2-C3: Intervertebral disc height and signal are maintained. Posterior elements are normal.There is no stenosis. C3-C4: The discs is dehydrated without height loss. There is left facet hypertrophy. Central canal measures 12 mm. Neural foramina are patent. C4-C5: Disc is dehydrated without height loss. There is right greater than left facet hypertrophy. Central canal measures 12 mm. There is moderate narrowing of the right neural foramen. C5-C6: Disc is dehydrated without height loss. There is left greater than right facet hypertrophy. Central canal measures 12 mm. Neural foramina are patent. C6-C7: Loss intervertebral disc height with circumferential disc osteophyte complex. Facets are mildly enlarged. Central canal measures 10 mm. Neural foramina are patent. C7-T1: Intervertebral disc height and signal are maintained. Posterior elements are normal. There is no stenosis. IMPRESSION: 1. Mild cervical disc degeneration without central canal stenosis 2. Moderate right C4-C5 neural foramen narrowing 3. Slightly low-lying cerebellar tonsils without mass effect on the brainstem 10/08/2016 - - Read by: Mando Rivera MD Dictated Date/time: 10/08/16 13:33 Electronically Signed by: Mando Rivera MD 10/08/16 15:19 FINAL REPORT [facility] IMMUNOLOGY Hep C Ab Negative *NA* (04/04/14 3:19 PM) 04/04/2014 [facility] Hep B Core Ab Negative *NA* (04/04/14 3:19 PM) Negative 04/04/2014 [facility] Hep B Core IgM Negative *NA* (04/04/14 3:19 PM) Negative 04/04/2014 [facility] Hep Bs Ab null <=7.4 mIU/mL 04/04/2014 1Interpretive Data: <=7.4 mIU/mL--------Negative for Anti-HBs. Not immune to HBV infection. 7.5-12.4 mIU/mL--Borderline for Anti-HBs and immune status should be further assessed by considering other factors such as clinical status follow-up testing, associated risk factors, and the use of additional diagnostic information. >12.4 mIU/mL-------Positive for Anti-HBs. Immune to HBV infection [facility] IMMUNOLOGY Hep Bs Ag Negative *NA* (04/04/14 3:19 PM) Negative 04/04/2014 [facility] URINE AND STOOL UA Color Ltyellow 04/04/2014 [facility] URINE AND STOOL UA Urobilinogen <=1.0 mg/dL 0.1 - 1.0 04/04/2014 [facility] URINE AND STOOL UA Turbidity Clear (04/04/14 3:19 PM) Clear 04/04/2014 [facility] URINE AND STOOL UA Bacteria Occasional /HPF None Seen /HPF 04/04/2014 [facility] URINE AND STOOL UA WBC 7 /HPF 0 - 5 04/04/2014 [facility] URINE AND STOOL UA RBC 3 /HPF 0 - 2 04/04/2014 [facility] URINE AND STOOL UA Leuk Est Small *ABN* (04/04/14 3:19 PM) Negative 04/04/2014 [facility] URINE AND STOOL UA Sq Epi Occasional /LPF Few /LPF 04/04/2014 [facility] URINE AND STOOL UA Blood Moderate *ABN* (04/04/14 3:19 PM) Negative 04/04/2014 [facility] URINE AND STOOL UA Bili Negative *NA* (04/04/14 3:19 PM) Negative 04/04/2014 [facility] URINE AND STOOL UA Nitrite Negative (04/04/14 3:19 PM) Negative 04/04/2014 [facility] URINE AND STOOL UA Ketones Negative mg/dL Negative mg/dL 04/04/2014 [facility] URINE AND STOOL UA pH 6.0 5.0 - 8.0 04/04/2014 [facility] URINE AND STOOL UA Spec Grav 1.006 <=1.030 04/04/2014 [facility] URINE AND STOOL UA Glucose Negative mg/dL Negative mg/dL 04/04/2014 [facility] URINE AND STOOL UA Protein Negative mg/dL Negative mg/dL 04/04/2014 [facility] Pelvis w Pelvis Transvaginal US Pelvis w Pelvis Transvaginal US PELVIC ULTRASOUND: CLINICAL HX: Left lower quadrant pain COMPARISON: CT abdomen pelvis 08/09/2013 TECHNIQUE: Multiple static transabdominal images of the pelvis are submitted for review. FINDINGS: The uterus is surgically absent. Neither ovary is optimally visualized on the transabdominal study. The bladder is grossly unremarkable in appearance. TRANSVAGINAL ULTRASOUND: TECHNIQUE: Multiple static transvaginal images of the pelvis are submitted for review. FINDINGS: Neither ovary is visualized on the transvaginal study. Evaluation is compromised due to extensive bowel gas in the pelvis. No free fluid is present in the cul-de-sac. IMPRESSION: Uterus is surgical absent. Neither ovary is visualized on the transabdominal and transvaginal study. SL:13 04/04/2014 - - Read by: Matt Carranza MD Dictated Date/time: 04/05/14 07:45 Electronically Signed by: Matt Carranza MD 04/05/14 07:51 FINAL REPORT [facility] Vital Signs Vital Sign Value Date Comments Source Encounters Location Location Details Encounter Type Encounter Number Reason For Visit Attending Provider ADM Date DC Date Status Source [facility] [place] [place] Outpatient [id number] Daniel Wade 04/04/2014 04/05/2014 [facility] [place] [facility] [id number] Thu Grier 10/08/2016 10/09/2016 [facility] [place] [facility] Procedures Procedure Code Date Perfomer Comments Source Appendectomy 16304047 [facility] [place] [facility] Bilateral replacement of knee joints 503586099 [facility] [place] [facility] Bilateral tubal ligation [id number] [facility] Carpal tunnel release 41996029 [facility] [place] [facility] Cholecystectomy [id number] [facility] [place] [facility] Colonoscopy [id number] [facility] Esophagogastroduodenoscopy [id number] [facility] [place] [facility] Hysterectomy [id number] [facility] [place] [facility]
--- OUTSIDE RECORDS SUMMARY | 2018-03-31 08:48 | XMS REPORT | Summary of Care ---
Author Organization Unknown Address Unknown Phone Unavailable Encounter [facility](ROSAMARIA) [id number] Date(s): 04/04/14 - 04/04/14 [facility] [address] [place] [address] Discharge Disposition: Home Physician Attending: Daniel Wade MD Physician_Referring: Daniel Wade MD Reason for Visit 789.04; ABDOMINAL CRAMPING IN LEFT LOWER QUADRANT V73.9 Problem List Condition Effective Dates Status Health Status Informant Anemia(Confirmed) Resolved Arthritis(Confirmed) Active Bronchiolitis, Resolved acute(Confirmed) Cardiomegaly(Confirm Resolved ed) Colon Resolved polyp(Confirmed) Diaphragmatic Active hernia(Confirmed) Gastric Resolved ulcer(Confirmed) GERD Active (gastroesophageal reflux disease)(Confirmed) HTN - Resolved Hypertension(Confirm ed) Neuropathy(Confirmed Active ) Allergies, Adverse Reactions, Alerts Substance Reaction Severity Status Demerol HCl Active Medications No data available for this section Results URINE AND STOOL Most recent to 1 oldest [Reference Range]: UA Turbidity [Clear] Clear (04/04/14 3:19 PM) UA Color Ltyellow *NA* (04/04/14 3:19 PM) UA pH [5.0-8.0] 6.0 (04/04/14 3:19 PM) UA Spec Grav 1.006 [<=1.030] (04/04/14 3:19 PM) UA Glucose [Negative Negative mg/dL mg/dL] *NA* (04/04/14 3:19 PM) UA Blood [Negative] Moderate *ABN* (04/04/14 3:19 PM) UA Ketones [Negative Negative mg/dL mg/dL] *NA* (04/04/14 3:19 PM) UA Protein [Negative Negative mg/dL mg/dL] (04/04/14 3:19 PM) UA Urobilinogen <=1.0 mg/dL [0.1-1.0 mg/dL] *NA* (04/04/14 3:19 PM) UA Bili [Negative] Negative *NA* (04/04/14 3:19 PM) UA Leuk Est Small [Negative] *ABN* (04/04/14 3:19 PM) UA Nitrite Negative [Negative] (04/04/14 3:19 PM) UA WBC [0-5 /HPF] 7 /HPF *HI* (04/04/14 3:19 PM) UA RBC [0-2 /HPF] 3 /HPF *HI* (04/04/14 3:19 PM) UA Bacteria [None Occasional /HPF Seen /HPF] *NA* (04/04/14 3:19 PM) UA Sq Epi [Few /LPF] Occasional /LPF *NA* (04/04/14 3:19 PM) IMMUNOLOGY Most recent to 1 oldest [Reference Range]: Hep Bs Ag [Negative] Negative *NA* (04/04/14 3:19 PM) Hep B Core IgM Negative [Negative] *NA* (04/04/14 3:19 PM) Hep Bs Ab [<=7.4 <3.1 mIU/mL 1 mIU/mL] (04/04/14 3:19 PM) Hep B Core Ab Negative [Negative] *NA* (04/04/14 3:19 PM) Hep C Ab Negative *NA* (04/04/14 3:19 PM) 1Interpretive Data: <=7.4 mIU/mL--------Negative for Anti-HBs. Not immune to HBV infection. 7.5-12.4 mIU/mL--Borderline for Anti-HBs and immune status should be further assessed by considering other factors such as clinical status follow-up testing, associated risk factors, and the use of additional diagnostic information. >12.4 mIU/mL-------Positive for Anti-HBs. Immune to HBV infection Medications Administered During Your Visit No data available for this section Immunizations No data available for this section Social History Social History Type Response Alcohol Use: Current, Type: Wine, Previous treatment: None Smoking Status Never smoker, Exposure to Tobacco Smoke None, Cigarette Smoking Last 365 Days No, Reg Smoking Cessation Counseling No
[2018-03-31 09:58] LABS: BASOPHILS % 0.7 % (0.0-1.0); EOSINOPHILS # (AUTO) 0.2 (0.0-0.4); EOSINOPHILS % 2.7 % (0.0-6.0); HEMATOCRIT 38.4 % (34.2-44.1); HEMOGLOBIN 12.5 g/dL (12.0-16.0); LYMPHOCYTES # (AUTO) 2.5 (1.0-3.2); LYMPHOCYTES % 45.1 % (18.0-39.1); MEAN CORPUSCULAR HEMOGLOBIN 27.5 pg (28-32); MEAN CORPUSCULAR HGB CONC 32.6 g/dL (31-35); MEAN CORPUSCULAR VOLUME 84.6 fL (81-99); MONOCYTES # (AUTO) 0.4 (0.2-0.8); MONOCYTES % 7.6 % (4.4-11.3); NEUTROPHILS # (AUTO) 2.4 (2.1-6.9); NEUTROPHILS % 43.5 % (38.7-80.0); PLATELET COUNT 163 x10e3/uL (140-360); RED BLOOD COUNT 4.54 x10e6/uL (3.6-5.1); RED CELL DISTRIBUTION WIDTH 14.5 % (11.7-14.4)
--- NOTE | 2018-03-31 10:53 | Diagnostic Imaging Report ---
PROCEDURE: Frontal and lateral views of the chest. COMPARISON: None. INDICATIONS: PREOPERATIVE CHEST XRAY FOR BLADDER SURGERY FINDINGS: Lines/tubes: None. Lungs: Moderate lung volumes. Patchy bibasilar opacities. No evidence of lobar consolidation. Pleura: There is no pleural effusion or pneumothorax. Heart and mediastinum: Ectatic and tortuous thoracic aorta. Cardiac silhouette is unremarkable. Bones: No acute bony abnormality. Upper abdomen: Surgical clips project over the upper abdomen. IMPRESSION: No acute radiographic abnormality. Mild patchy bibasilar opacities, likely atelectasis. No evidence of lobar pneumonia. Tortuous and ectatic thoracic aorta. Dictated by: JACOB PACHECO M.D. on 03/31/2018 at 11:02 Electronically approved by: JACOB PACHECO M.D. on 03/31/2018 at 11:02
[2018-03-31 14:10] VITALS: BP 122/84
--- NOTE | 2018-04-07 11:12 | Operative Report ---
DATE OF PROCEDURE: March 31, 2018 PREOPERATIVE DIAGNOSIS: Bladder pain. POSTOPERATIVE DIAGNOSIS: Bladder pain. PROCEDURE PERFORMED: Cystoscopy. ANESTHESIA: Local. ESTIMATED BLOOD LOSS: Minimal. INDICATIONS: Ms. Dinora Lucero is a 67-year-old woman with a long history of bladder pain, which has been unresponsive to typical therapy. She now presents for management of this problem. PROCEDURE IN DETAIL: Patient was brought to the operating room and, after administration of 2% lidocaine intraurethrally, was prepped and draped in the usual fashion. Flexible cystoscopy was performed. The anterior and posterior regions were noted to be normal. Bladder was entered without difficulty. Upon entrance into the bladder, there was some squamous metaplasia noted at the trigone. There was a fairly normal capacity but significant increase in the hyperemia associated with filling of the bladder consistent with possible interstitial cystitis. Decompression of the bladder and repeat reinflation resorted in moderate increase to this bleeding. The bladder was then drained in its entirety, and the bladder was filled with 30 mL of lidocaine without epinephrine. The cystoscope was removed and the patient returned to a supine position. She was transferred to a bed and taken to the postanesthesia care unit in good condition. Of note, the needle and instrument counts were correct at the conclusion of the case. Job#: [id number]
== END | disposition home or self-care (01) ==
LOC: OR 08:45
PROVIDERS: ATTEND Urology
DX: R39.89 Other symptoms and signs involving the genitourinary system (principal); N39.46 Mixed incontinence; N32.89 Other specified disorders of bladder; Z68.30 Body mass index [BMI] 30.0-30.9, adult; I10 Essential (primary) hypertension
CPT/HCPCS: 36415; 52000; 71046; 85025; 93005; J0696; J2001

== ENCOUNTER → 2018-09-21 | Outpatient (CLI) | payer MEDICARE, OTHER ==
[~2018-09-21] MED LIST changes: -CEFTRIAXONE SOD 1 GM VIAL ONE; -IOPAMIDOL 610MG/1ML 300 MG/ML VIAL IV ONE; -LIDOCAINE HCL 1% LOCAL INJ 20 ML VIAL ONE; -LIDOCAINE JELLY 2% 10ML URO-JET ONE
--- NOTE | 2018-09-21 09:43 | Diagnostic Imaging Report ---
Exam: Bilateral feet, 3 views History: Rheumatoid arthritis Comparison: None. Findings: Left: No acute, displaced fracture or dislocation. Postsurgical changes related to fusion of the first metatarsal and the underlying medial cuneiform with intact orthopedic screws. Joint space narrowing and marginal osteophytosis throughout the midfoot. No definite erosions. Soft tissues unremarkable. Right: No acute, displaced fracture or dislocation. Joint spaces are well-maintained without erosions. Soft tissues unremarkable. 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 No acute osseous abnormalities of the right foot. Signed by: Dr. Lester Don M.D. on 09/21/2018 9:39 AM
--- NOTE | 2018-09-21 09:51 | Diagnostic Imaging Report ---
Exam: Bilateral hands, 3 views History: Rheumatoid arthritis Comparison: None. Findings: Left: No acute, displaced fracture or dislocation. Near complete joint space loss of the first carpometacarpal joint with subchondral sclerosis and marginal osteophytes. Deformity of the first proximal phalanx with subluxation of the interphalangeal joint. Marginal erosions along the distal aspect of the second, third, and fourth proximal phalanges. Scattered foci of joint space narrowing and subchondral sclerosis throughout the interphalangeal joints. Right: No acute, displaced fracture or dislocation. Mild joint space narrowing and marginal osteophytosis of the first carpometacarpal joint. Deformity of the proximal first phalanx with subluxation of the interphalangeal joint. Marginal erosions along the second, and third, and fourth proximal phalanges. Scattered foci of joint space narrowing and marginal osteophytosis throughout the interphalangeal joints. Impression: Erosive arthropathy affecting the proximal interphalangeal joints in a symmetric fashion in keeping with the provided diagnosis of rheumatoid arthritis. Asymmetric degenerative arthrosis of the first carpometacarpal joints. Signed by: Dr. Lester Don M.D. on 09/21/2018 9:48 AM
== END ==
LOC: RAD 08:27
PROVIDERS: ATTEND Student in an Organized Health Care Education/Training Program
DX: M06.9 Rheumatoid arthritis, unspecified (principal)

== ENCOUNTER → 2018-11-17 | Outpatient (CLI) | payer MEDICARE, OTHER ==
--- NOTE | 2018-11-17 14:48 | Diagnostic Imaging Report ---
Exam: AP pelvis and coned-down views of both hips; 5 views total dated 11/17/2018 History: Bilateral hip pain Comparison: None available Findings: There is mild bony demineralization. Bilateral joint space narrowing of the hip joints is present. No fracture or dislocation is seen. Partially visualized right intramedullary armin is present. Impression: Mild joint space narrowing. Signed by: Dr. Aryan Shelley DO on 11/17/2018 2:45 PM
== END ==
LOC: RAD 11:51
PROVIDERS: ATTEND Student in an Organized Health Care Education/Training Program
DX: M25.552 Pain in left hip (principal); M25.551 Pain in right hip
CPT/HCPCS: 73521

== ENCOUNTER 2019-06-26 10:57 | Inpatient (IN) | payer MEDICARE, OTHER ==
[~2019-06-26] VITALS: Ht 157.5 cm; Wt 92.1 kg
[~2019-06-26 10:57] MED LIST changes: -NORCO 10-325 T1 EACH; +NORCO 10-325 T1 EACH PO
[2019-06-26] MEDS ORDERED: IOPAMIDOL 300MG/ML 50ML INFUS..BTL IV ONE (11:37)
[2019-06-26] MEDS ORDERED: INDIGOTINDISULFONATE SODIUM 8 MG/ML AMP IJ ONE (11:38)
[2019-06-26] MEDS ORDERED: B&O 60MG R/S 60 MG SUPP PR ONE (11:38)
[2019-06-26] MEDS ORDERED: BUPIVACAINE 0.5%/EPI 30 ML SDV INJ ONE (11:38)
[2019-06-26] MEDS ORDERED: BACITRACIN 50,000 UNIT VIAL ONE (11:38)
[2019-06-26] MEDS ORDERED: SILVER SULFADIAZINE 50GM CREAM ONE (11:39)
[2019-06-26] MEDS ORDERED: PIPER-TAZ 3.375 GM 50 ML ONE (11:40)
[2019-06-26] MEDS ORDERED: CLINDAMYCIN 300MG 50 ML IV ONE (11:40)
[2019-06-26] MEDS ORDERED: GENTAMICIN 80MG/NS 100 ML 200 ML IV ONE (11:40)
[2019-06-26 12:01] LABS: BASOPHILS % 0.5 % (0.0-1.0); EOSINOPHILS % 0.7 % (0.0-6.0); HEMATOCRIT 36.5 % (34.2-44.1); HEMOGLOBIN 12.6 g/dL (12.0-16.0); LYMPHOCYTES # (AUTO) 1.9 (1.0-3.2); LYMPHOCYTES % 32.3 % (18.0-39.1); MEAN CORPUSCULAR HEMOGLOBIN 30.3 pg (28-32); MEAN CORPUSCULAR HGB CONC 34.5 g/dL (31-35); MEAN CORPUSCULAR VOLUME 87.7 fL (81-99); MONOCYTES # (AUTO) 0.6 (0.2-0.8); MONOCYTES % 9.5 % (4.4-11.3); NEUTROPHILS # (AUTO) 3.3 (2.1-6.9); NEUTROPHILS % 56.3 % (38.7-80.0); PLATELET COUNT 185 x10e3/uL (140-360); RED BLOOD COUNT 4.16 x10e6/uL (3.6-5.1); RED CELL DISTRIBUTION WIDTH 15.1 % (11.7-14.4)
[2019-06-26] MEDS ORDERED: AMITRIPTYLINE PO (12:17)
[2019-06-26] MEDS ORDERED: FOLIC ACID PO (12:17)
[2019-06-26] MEDS ORDERED: METHOTREXATE2.5 MG PO (12:17)
[2019-06-26] MEDS ORDERED: MONTELUKAST PO (12:17)
[2019-06-26] MEDS ORDERED: CYCLOBENZAPRINE10 MG PO (12:17)
[2019-06-26 12:21] LABS: ANION GAP 14.2 mmol/L (8-16); BLOOD UREA NITROGEN 24 mg/dL (7-26); BUN/CREATININE RATIO 42 (6-25); CALCIUM 9.8 mg/dL (8.4-10.2); CARBON DIOXIDE 27 mmol/L (22-29); CHLORIDE 104 mmol/L (98-107); CREATININE, SERUM 0.57 mg/dL (0.57-1.11); EST GLOMERULAR FILTRATION RATE > 60 ML/MIN (60-); GLUCOSE 94 mg/dL (74-118); POTASSIUM 4.2 mmol/L (3.5-5.1); SODIUM 141 mmol/L (136-145)
--- NOTE | 2019-06-26 12:43 | Diagnostic Imaging Report ---
EXAMINATION: CHEST 2 VIEWS INDICATION: Pre-operative COMPARISON: None FINDINGS: LINES/TUBES:None LUNGS:Increased AP diameter of the chest.. Mild left basilar subsegmental atelectasis. No focal consolidation or pulmonary edema. PLEURA:No pleural effusion or pneumothorax. MEDIASTINUM:The cardiomediastinal silhouette appears normal in size and shape. BONES/SOFT TISSUES:No acute osseous injury. ABDOMEN:No free air under the diaphragm. IMPRESSION: No focal pneumonia or pulmonary edema. Increased AP diameter of the chest, likely reflective of underlying COPD. Signed by: Yasmin Go MD on 06/26/2019 12:40 PM
[2019-06-26] MEDS ORDERED: DEXAMETHASONE SOD PHOS INJ 4 MG/ML VIAL ONE (14:10)
[2019-06-26] MEDS ORDERED: PROPOFOL IV EMULSION 10 MG/ML 20 ML VIAL ONE (14:10)
[2019-06-26] MEDS ORDERED: SEVOFLURANE INHAL SOLN 250 ML PEN BTL ONE (14:10)
[2019-06-26] MEDS ORDERED: LIDOCAINE HCL 2% LOCAL INJ 5 ML SDV VIAL INJ ONE (14:10)
[2019-06-26] MEDS ORDERED: ONDANSETRON HCL INJ 2MG/ML 2ML 2 MG/ML VIAL ONE (14:10)
[2019-06-26] MEDS ORDERED: ACETAMINOPHEN 1000 MG/100 ML 100 ML IV ONE (14:18)
[2019-06-26] MEDS ORDERED: MIDAZOLAM HCL 2 MG/2 ML VIAL ONE (14:30)
[2019-06-26] MEDS ORDERED: FENTANYL CITRATE/PF 100MCG/2 ML INJ ONE ×2 (14:30→15:02)
[2019-06-26] MEDS ORDERED: NALOXONE HCL INJ 0.4 MG/ML AMP IV PRN (15:00)
[2019-06-26] MEDS ORDERED: DIPHENHYDRAMINE HCL 25 MG CAP PO PRN (15:00)
[2019-06-26] MEDS ORDERED: ACETAMINOPHEN 1000 MG/100 ML IV PRN (15:00)
[2019-06-26] MEDS ORDERED: ONDANSETRON HCL INJ 2MG/ML 2ML 2 MG/ML VIAL IV PRN (15:00)
[2019-06-26] MEDS: MORPHINE SULFATE 1 MG/ML 30ML PCA IV PRN (15:20)
[2019-06-26] MEDS ORDERED: MORPHINE SULFATE 1 MG/ML 30ML PCA ONE (15:21)
[2019-06-26 16:30] VITALS: BP 168/77
--- NOTE | 2019-06-26 16:30 | NUR ---
Received patient lying in bed with eyes open. Respiration even and unlabored without SOB. 2 puncture sites on suprapubic area with 2x2 gauze and tagaderm clean, dry and intact. Indwelling lowry catheter intact, in placed with pink-colored urine to bag. CIGAR HEAD PIERCER pump in used. Call light in reach.
[2019-06-26] MEDS: DOCUSATE SODIUM 100 MG CAP PO SCH (17:51)
[2019-06-26] MEDS: D5.45%NS/KCL 20MEQ 1,000 ML IV SCH (17:51)
--- NOTE | 2019-06-26 19:49 | NUR ---
Report given to material handler 2nd shift. Respiration even and unlabored without SOB. Call light in reach. DRAFTER PLUMBING pump in used. Prince Catheter intact, in placed.
[2019-06-26 20:00] VITALS: BP 116/61
[2019-06-26 21:00] VITALS: BP 168/77
[2019-06-26] MEDS: PIPER-TAZ 3.375 GM 50 ML IV SCH (22:23)
[2019-06-27] VITALS (7 sets, daily range): BP systolic 97–153; BP diastolic 54–77
[2019-06-27] MEDS: D5.45%NS/KCL 20MEQ 1,000 ML IV SCH ×2 (01:52→12:22)
[2019-06-27] MEDS: PIPER-TAZ 3.375 GM 50 ML IV SCH ×3 (05:03→21:58)
[2019-06-27 06:26] LABS: ANION GAP 10.6 mmol/L (8-16); BLOOD UREA NITROGEN 9 mg/dL (7-26); BUN/CREATININE RATIO 17 (6-25); CALCIUM 8.7 mg/dL (8.4-10.2); CARBON DIOXIDE 28 mmol/L (22-29); CHLORIDE 106 mmol/L (98-107); CREATININE, SERUM 0.54 mg/dL (0.57-1.11); EST GLOMERULAR FILTRATION RATE > 60 ML/MIN (60-); GLUCOSE 115 mg/dL (74-118); POTASSIUM 3.6 mmol/L (3.5-5.1); SODIUM 141 mmol/L (136-145)
[2019-06-27 07:19] LABS: HEMATOCRIT 30.3 % (34.2-44.1); MEAN CORPUSCULAR VOLUME 91.3 fL (81-99); RED BLOOD COUNT 3.32 x10e6/uL (3.6-5.1)
[2019-06-27 07:20] LABS: MEAN CORPUSCULAR HEMOGLOBIN 30.1 pg (28-32); PLATELET COUNT 130 x10e3/uL (140-360)
[2019-06-27 07:21] LABS: EOSINOPHILS % 0.4 % (0.0-6.0); LYMPHOCYTES % 18.9 % (18.0-39.1); MONOCYTES % 10.1 % (4.4-11.3)
--- NOTE | 2019-06-27 08:00 | NUR ---
patient endorsed to next shift for continuity of care. bowling alley floors installer pumped replaced, 5.17 wasted and witnessed and another syringed replaced, 30mls.
[2019-06-27] MEDS: MORPHINE SULFATE 1 MG/ML 30ML PCA IV PRN (08:08)
[2019-06-27] MEDS ORDERED: ONDANSETRON HCL 4 MG ORAL DISINTEGRATING TAB PO PRN (09:00)
[2019-06-27 09:11] LABS: LYMPHOCYTES # (AUTO) 0.9 (1.0-3.2); MONOCYTES # (AUTO) 0.5 (0.2-0.8); NEUTROPHILS # (AUTO) 3.3 (2.1-6.9)
[2019-06-27] MEDS: DOCUSATE SODIUM 100 MG CAP PO SCH ×2 (09:24→17:08)
[2019-06-27] MEDS: PREGABALIN 50 MG CAP PO SCH ×3 (09:24→21:57)
--- NOTE | 2019-06-27 19:12 | NUR ---
Report given to oncoming nurse, walking rounds complete, pt stable at this this time.
[2019-06-27] MEDS ORDERED: SERTRALINE HCL 100 MG TAB PO SCH (21:00)
[2019-06-28] VITALS: BP 112/54
[2019-06-28] MEDS: D5.45%NS/KCL 20MEQ 1,000 ML IV SCH ×2 (00:51→11:47)
[2019-06-28 04:00] VITALS: BP 138/68
[2019-06-28] MEDS: ACETAMINOPHEN/CODEINE 300MG - 30MG TAB PO PRN ×2 (04:15→09:20)
[2019-06-28] MEDS: PIPER-TAZ 3.375 GM 50 ML IV SCH ×2 (06:06→13:36)
[2019-06-28 06:11] LABS: BASOPHILS % 0.2 % (0.0-1.0); EOSINOPHILS % 0.9 % (0.0-6.0); HEMATOCRIT 30.3 % (34.2-44.1); HEMOGLOBIN 9.9 g/dL (12.0-16.0); LYMPHOCYTES # (AUTO) 1.1 (1.0-3.2); LYMPHOCYTES % 24.8 % (18.0-39.1); MEAN CORPUSCULAR HGB CONC 32.7 g/dL (31-35); MEAN CORPUSCULAR VOLUME 91.8 fL (81-99); MONOCYTES # (AUTO) 0.4 (0.2-0.8); MONOCYTES % 9.8 % (4.4-11.3); NEUTROPHILS # (AUTO) 2.7 (2.1-6.9); NEUTROPHILS % 63.8 % (38.7-80.0); PLATELET COUNT 121 x10e3/uL (140-360); RED CELL DISTRIBUTION WIDTH 14.9 % (11.7-14.4)
[2019-06-28 06:32] LABS: BLOOD UREA NITROGEN 10 mg/dL (7-26); BUN/CREATININE RATIO 15 (6-25); CALCIUM 8.6 mg/dL (8.4-10.2); CARBON DIOXIDE 28 mmol/L (22-29); CHLORIDE 107 mmol/L (98-107); CREATININE, SERUM 0.67 mg/dL (0.57-1.11); EST GLOMERULAR FILTRATION RATE > 60 ML/MIN (60-); GLUCOSE 116 mg/dL (74-118); SODIUM 141 mmol/L (136-145)
[2019-06-28 07:25] VITALS: BP 138/71
--- NOTE | 2019-06-28 07:30 | NUR ---
Received patient this morning and alert and responsive, no resp distress, pains well managed and call light within reach, will monitor. Report received and rounds completed.
[2019-06-28 08:45] VITALS: BP 138/71
[2019-06-28] MEDS: DOCUSATE SODIUM 100 MG CAP PO SCH ×2 (09:04→16:15)
[2019-06-28] MEDS: PREGABALIN 50 MG CAP PO SCH ×2 (09:06→15:00)
[2019-06-28 11:30] VITALS: BP 125/61
--- NOTE | 2019-06-28 12:02 | NUR ---
Rounds by Dr. Vang and orders to d/c lowry, PVR x2 and if voiding <100cc, may discharge.
[2019-06-28] MEDS ORDERED: TYLENOL WITH C1 EACH PO (12:09)
[2019-06-28] MEDS ORDERED: LEVAQUIN500 MG PO (12:10)
--- NOTE | 2019-06-28 12:42 | NUR ---
TOOK WALKER TO PT AND OBTAINED SIGNATURES, ATTACHED ORDER, GREEN SHEET AND FACESHEET, WAITING ON MD SIGNATURE
--- NOTE | 2019-06-28 13:32 | NUR ---
Suresh louis d/c'd at this time, will monitor PVR
[2019-06-28 15:43] VITALS: BP 125/58
--- NOTE | 2019-06-28 15:59 | NUR ---
First PVR was 200cc and second PVR was 113cc. Reported to Dr. Vang and states to send patient home and schedule f/u appointment in 3-4 weeks.
--- NOTE | 2019-06-28 16:12 | NUR ---
Orders per Dr. Marsh to discharge patient. Voided x2 and PVR's reported and cleared by Dr. Vang to discharge. Pains well managed, provided with discharge summary, IV line removed and cath tip in place, dressing applied, prescriptions provided and contacts for f/u appointment.
--- NOTE | 2019-07-09 01:40 | Discharge Summary ---
DISCHARGE DIAGNOSIS: Cystocele status post repair. HISTORY OF PRESENT ILLNESS AND HOSPITAL COURSE: See hospital chart for full details. The patient is a lady, who presented with an elective outpatient procedure for cystocele repair with Dr. Vang, who did well postoperatively and as monitored in the hospital postoperatively for her abdominal pain, which improved each day. At the time of discharge, she was ambulating well, had minimal discomfort and was cleared by Dr. Vang and she will follow up in 1 to 2 weeks with me as well as Dr. Vang. Please see hospital chart for full details. MD ILYA Rene/RENETTA /[id number]
--- NOTE | 2019-08-07 05:34 | Operative Report ---
DATE OF PROCEDURE: 06/26/2019 SURGEON: Anton Vang MD PREOPERATIVE DIAGNOSES: 1. Stress type urinary incontinence. 2. Grade 3 cystocele. 3. Urinary tract infections. 4. Gross hematuria. POSTOPERATIVE DIAGNOSES: 1. Stress type urinary incontinence. 2. Grade 3 cystocele. 3. Urinary tract infections. 4. Gross hematuria. OPERATIONS PERFORMED: 1. Repair of large cystocele. 2. Utilization of graft and cystocele repair. 3. Pubovaginal sling utilizing homograft. 4. Cystourethroscopy with bilateral ureteral catheterization and retrograde ureteropyelography (separate procedure performed for the hematuria and urine tract infections). 5. Interpretation of retrograde ureteropyelography. 6. Supervision of fluoroscopy, no radiologist present. EQUIPMENT VALIDATION SPECIALIST: Nam Vang MD ANESTHESIA: General. COMPLICATIONS: None. CLINICAL SUMMARY: Dinora Lucero is a 69-year-old woman with the above preoperative diagnoses. She is brought for the above procedure. She is aware of the risks of bleeding, infection, injury to adjacent structures, need for additional procedures and elected to proceed. OPERATIVE PROCEDURE IN DETAIL: Informed consent was verified. Dinora Lucero was properly identified, taken to the operating room, placed on operating table in supine position. Anesthesia was uneventfully begun. The patient was then carefully gently repositioned in dorsal lithotomy position with all pressure points well padded. Her abdomen and genitalia were shaved, prepared, and draped in usual sterile fashion. Labial stay sutures were placed and the speculum was utilized. Marcaine with epinephrine was utilized to infiltrate submucosally along the midline of the anterior vaginal wall. A midline incision was made. Bilateral vaginal wall flaps were created. We then pierced the endopelvic fascia as laterally as possible to avoid injuring the neurovascular periurethral complexes. Once all this dissection was carried out, cystocele repair was performed. Heavy Vicryl suture was utilized in interrupted fashion to approximate the cut edges of the endopelvic fascia from the bladder neck to the cephalad was extended with vaginal dissection. This resulted in complete reduction of the patient's severe grade 3 cystocele. The graft of the fascia jelani was cut to shape. It was hydrated in antibiotic irrigant and a heavy PDS suture was placed in a helical fashion through each edge of this graft. The bladder was drained with a Prince catheter. The [employer] [facility] needle system was then utilized. We hung the posterior surface of the pubis and then pierced through the anterior abdominal wall. This we then dragged along with the needle, one pair of PDS suture strands. This was performed on the contralateral side. The graft was then secured to the dissection so that it does not migrate and support the cystocele. The distal portion of the graft was then approximated to the distal portion of the urethral dissection. This resulted in a pubovaginal sling. The [employer] [facility] lateral suture system was then utilized to take one strand of each PDS suture and tunnel it subcutaneously suprapubically to join its contralateral counterpart. We tied down the sutures to the level of the skin and allowed the knots to fall deep within the suprapubic fat pad. This is to ensure a non-lifting, non-constricting, and nonobstructing sling. Copious irrigation was performed of all incisions with the antibiotic irrigant. The stab wounds in the suprapubic region were approximated with 4-0 Monocryl suture in subcuticular fashion. The vaginal mucosa was trimmed and reapproximated with heavy Vicryl suture in running fashion. The Prince catheter was removed. Cystoscopy was performed. Panendoscopy revealed no suspicious mucosal lesions, no tumors, no stones, and no diverticula. An 8-Scottish catheter was used to cannulate each ureter and retrograde ureteral pyelogram was performed. Interpretation of retrograde ureteropyelography contrast was instilled in retrograde fashion bilaterally. There were no tumors, no stones, no diverticula. Unobstructed drainage was observed bilaterally fluoroscopically, J hooking was noted bilaterally. The bladder was drained. Cystoscope was withdrawn. Prince catheter was placed. Vaginal packing was placed. Sterile dressings were applied to the suprapubic area. The labial stay sutures were removed and the patient was uneventfully reversed from anesthesia and taken to recovery room in stable condition. There were no complications to the procedure. She tolerated the procedure well. We will proceed with routine postoperative care and of course ongoing urological followup. Anton Vang MD [facility]/MOD[facility] /[id number] cc: Taran Marsh MD
== END 2019-06-28 16:35 | disposition home or self-care (01) | DRG 748 ==
LOC: OR 10:57 → PACU V 15:15 → MED/SURG 16:37
PROVIDERS: ADMIT Internal Medicine; ATTEND Internal Medicine
PROC: 0T788ZZ Dilation of Bilateral Ureters, Via Natural or Artificial Opening Endoscopic (ICD-10-PCS; 2019-06-26)
PROC: 0JUC0JZ Supplement of Pelvic Region Subcutaneous Tissue and Fascia with Synthetic Substitute, Open Approach (ICD-10-PCS; principal; 2019-06-26 13:00)
PROC: 0TSD0ZZ Reposition Urethra, Open Approach (ICD-10-PCS; 2019-06-26 13:00)
DX: N81.12 Cystocele, lateral (principal); N39.0 Urinary tract infection, site not specified; I10 Essential (primary) hypertension; F41.9 Anxiety disorder, unspecified; E66.9 Obesity, unspecified; Z68.37 Body mass index [BMI] 37.0-37.9, adult; D64.9 Anemia, unspecified; N39.3 Stress incontinence (female) (male); R31.0 Gross hematuria
CPT/HCPCS: 36415; 71046; 74420; 80048; 85025; 93005; C1752; C1758; J1100; J1580; J2001; J2250; J2270; J2405; J2543; J3010

== ENCOUNTER 2019-06-29 02:39 | Emergency (ER) | payer MEDICARE ==
[~2019-06-29] VITALS: Ht 157.5 cm; Wt 92.1 kg
[~2019-06-29 02:39] MED LIST changes: +AMITRIPTYLINE PO; +CYCLOBENZAPRINE10 MG PO; +FOLIC ACID PO; +LEVAQUIN500 MG PO; +METHOTREXATE2.5 MG PO; +MONTELUKAST PO; +TYLENOL WITH C1 EACH PO
[2019-06-29 03:14] VITALS: BP 125/77
[2019-06-29 03:50] LABS: BILIRUBIN,URINE NEGATIVE (NEGATIVE); CLARITY,URINE CLEAR (CLEAR); COLOR,URINE YELLOW (YELLOW); KETONES,URINE NEGATIVE (NEGATIVE); LEUKOCYTE ESTERASE ,URINE NEGATIVE (NEGATIVE); NITRITE,URINE NEGATIVE (NEGATIVE); PROTEIN,URINE DIPSTICK NEGATIVE (NEGATIVE); URINE UROBILINOGEN 0.2 mg/dL (0.2 - 1)
[2019-06-29 04:06] LABS: BACTERIA,URINE FEW /HPF; EPITHELIAL CELLS,URINE FEW /LPF; RBC,URINE >50 /HPF (0-5); WBC,URINE (MAN) 0-5 /HPF (0-5)
== END 2019-06-29 03:30 | disposition home or self-care (01) ==
LOC: ER 02:39
DX: R33.9 Retention of urine, unspecified (principal); I10 Essential (primary) hypertension; F41.9 Anxiety disorder, unspecified; F32.9 Major depressive disorder, single episode, unspecified
CPT/HCPCS: 51700; 81001; 87086; 99282

== ENCOUNTER → 2019-07-10 | Outpatient (CLI) | payer OTHER | LOC: RAD 14:07 | PROVIDERS: ATTEND Internal Medicine | DX: R60.0 Localized edema (principal) | CPT/HCPCS: 93971 ==

== ENCOUNTER → 2020-03-14 | Outpatient (CLI) | payer MEDICARE ==
--- NOTE | 2020-03-14 10:50 | Diagnostic Imaging Report ---
EXAMINATION: Lumbar spine radiographs - 3 views CLINICAL HISTORY: Radiculopathy, lumbar region COMPARISON: Lumbar spine MRI 11/22/2017 DISCUSSION: Five nonrib-bearing lumbar type vertebral bodies are identified. No displaced fractures or acute osseous abnormalities. Lumbar vertebral body heights are well preserved. Diffuse osseous demineralization. Persistent mild/grade 1 anterolisthesis at L4 on L5. Subtle levoconvex curvature centered at L1. Mild multilevel degenerative disc changes. Multilevel facet arthropathy, most notably moderate at L4-L5 and L5-S1. Surgical clips in the right upper abdominal quadrant. IMPRESSION: 1. No acute osseous abnormality. 2. Mild multilevel degenerative disc changes. Additional multilevel facet arthropathy which is moderate at the inferior lumbar spine. Signed by: Dr. James Correa M.D. on 03/14/2020 10:47 AM
== END ==
LOC: RAD 09:48
PROVIDERS: ATTEND Anesthesiology Pain Medicine
DX: M54.16 Radiculopathy, lumbar region (principal)
CPT/HCPCS: 72100

== ENCOUNTER → 2021-01-31 | Day surgery (SDC) | payer MEDICARE, OTHER ==
[2021-01-29 10:46] LABS: BASOPHILS % 0.7 % (0.0-1.0); EOSINOPHILS # (AUTO) 0.2 (0.0-0.4); EOSINOPHILS % 3.3 % (0.0-6.0); HEMATOCRIT 38.7 % (34.2-44.1); HEMOGLOBIN 12.7 g/dL (12.0-16.0); LYMPHOCYTES # (AUTO) 1.7 (1.0-3.2); LYMPHOCYTES % 28.9 % (18.0-39.1); MEAN CORPUSCULAR HEMOGLOBIN 27.6 pg (28-32); MEAN CORPUSCULAR HGB CONC 32.8 g/dL (31-35); MEAN CORPUSCULAR VOLUME 84.1 fL (81-99); MONOCYTES # (AUTO) 0.5 (0.2-0.8); NEUTROPHILS # (AUTO) 3.5 (2.1-6.9); NEUTROPHILS % 58.6 % (38.7-80.0); PLATELET COUNT 162 x10e3/uL (140-360); RED CELL DISTRIBUTION WIDTH 15.2 % (11.7-14.4)
[2021-01-29 11:03] LABS: CALCIUM 9.4 mg/dL (8.4-10.2); CREATININE, SERUM 0.64 mg/dL (0.57-1.11)
[~2021-01-31] MED LIST changes: -ALENDRONATE SOD70 MG; +ALENDRONATE SOD70 MG PO; +AMLODIPINE BESYL5 MG PO; +BELLADONNA/OPIUM 30 MG SUPP RC ONE; +BOTULINUM TOXIN TYPE A 100 UNIT VIAL IM ONE; +CEFTRIAXONE 1 GM VIAL ONE; +CYMBALTA30 MG PO; +DEXAMETHASONE SOD PHOS INJ 4 MG/ML VIAL ONE; +IOPAMIDOL 300MG/ML 50ML INFUS..BTL IV ONE; +LIDOCAINE HCL 2% LOCAL INJ 5 ML SDV VIAL INJ ONE; -LYRICA50 MG; +LYRICA50 MG PO; +MONTELUKAST SOD10 MG PO; +ONDANSETRON HCL INJ 2MG/ML 2ML 2 MG/ML VIAL ONE; +POVIDONE IODINE 0.05% 0.05 % ML PO ONE; +PROPOFOL IV EMULSION 10 MG/ML 20 ML VIAL ONE; +SEVOFLURANE INHAL SOLN 250 ML PEN BTL ONE; +SODIUM CHLORIDE 0.9% 50ML 50 ML ONE; +TIZANIDINE HCL4 MG PO; +VESICARE5 MG PO; +VRAYLAR3 MG PO
[2021-01-31 09:40] VITALS: BP 151/86
== END | disposition home or self-care (01) ==
LOC: OR 06:52
PROVIDERS: ATTEND Urology
DX: N39.46 Mixed incontinence (principal); N39.0 Urinary tract infection, site not specified; N32.89 Other specified disorders of bladder; R80.9 Proteinuria, unspecified; R35.1 Nocturia; N81.10 Cystocele, unspecified; N81.6 Rectocele; N95.2 Postmenopausal atrophic vaginitis; G47.33 Obstructive sleep apnea (adult) (pediatric); I10 Essential (primary) hypertension; I45.10 Unspecified right bundle-branch block; E66.9 Obesity, unspecified; Z88.6 Allergy status to analgesic agent; Z01.810 Encounter for preprocedural cardiovascular examination; Z01.812 Encounter for preprocedural laboratory examination; Z01.818 Encounter for other preprocedural examination; Z20.822 Contact with and (suspected) exposure to COVID-19; Z68.33 Body mass index [BMI] 33.0-33.9, adult; Z86.73 Personal history of transient ischemic attack (TIA), and cerebral infarction without residual deficits; Z98.890 Other specified postprocedural states
CPT/HCPCS: 36415; 71046; 74420; 80048; 85025; 93005; C1758; J0587; J0696; J1100; J2001; J2405; U0002

== ENCOUNTER → 2021-10-15 | Outpatient (CLI) | payer OTHER ==
[~2021-10-15] MED LIST changes: -BELLADONNA/OPIUM 30 MG SUPP RC ONE; -BOTULINUM TOXIN TYPE A 100 UNIT VIAL IM ONE; -CEFTRIAXONE 1 GM VIAL ONE; -DEXAMETHASONE SOD PHOS INJ 4 MG/ML VIAL ONE; -IOPAMIDOL 300MG/ML 50ML INFUS..BTL IV ONE; -LIDOCAINE HCL 2% LOCAL INJ 5 ML SDV VIAL INJ ONE; -ONDANSETRON HCL INJ 2MG/ML 2ML 2 MG/ML VIAL ONE; -POVIDONE IODINE 0.05% 0.05 % ML PO ONE; -PROPOFOL IV EMULSION 10 MG/ML 20 ML VIAL ONE; -SEVOFLURANE INHAL SOLN 250 ML PEN BTL ONE; -SODIUM CHLORIDE 0.9% 50ML 50 ML ONE
== END ==
LOC: RAD 10:56
PROVIDERS: ATTEND Student in an Organized Health Care Education/Training Program
DX: M54.2 Cervicalgia (principal)
CPT/HCPCS: 72050